=== PATIENT | female | born 1950 | race Caucasian/White ===

== ENCOUNTER 2022-10-24 17:17 | Emergency (ER) | payer MEDICARE, SELFPAY ==
--- NOTE | ~2022-10-24 | XR_ITS ---
EXAMINATION: XR chest 1V portable Exam Date/Time: 10/24/2022 17:26 CDT HISTORY: R/O CVA Comparison: 07/08/2018. RESULT: Lines, tubes, and devices: Cholecystectomy clips. Lungs and pleura: Low volumes with crowding. Otherwise clear. Cardiomediastinal silhouette: Stable. Other: No acute osseous or upper abdominal finding. IMPRESSION: No acute cardiopulmonary process. Reviewed, dictated and finalized at location K.
--- NOTE | ~2022-10-24 | CT_ITS ---
EXAMINATION: CT brain wo con DATE: 10/24/2022 18:28 INDICATION: NEURO COMPLAINTS, HX OF CVA . TECHNIQUE: Computed tomography (CT) of the head was performed without intravenous contrast. The mA wa s adjusted according to patient size. Iterative reconstruction technique was employed. The dose-lengt h product was 605.33 mGy-cm. COMPARISON: None. FINDINGS: No acute intracranial hemorrhage or extra-axial fluid collection. No hydrocephalus, mass, or herniation. No acute ischemic infarct. Unremarkable dural venous sinus attenuation. No acute osseous abnormality. The aerated spaces are clear. Mild atrophy and moderate chronic white matter change. Atherosclerotic intracranial calcification. En cephalomalacia and volume loss in the left MCA territory, likely old infarct. Old bilateral basal jaspal glia lacunar infarcts. IMPRESSION: No acute intracranial process. Reviewed, dictated and finalized at location K.
[2022-10-24 17:16] VITALS: BP 232/113; PULSE 96; RESP 20; O2SAT 100
--- NOTE | 2022-10-24 17:23 | ECG_ITS ---
Measurements Intervals [place] Rate: 100 P: 35 PA: 83 QRS: -11 QRSD: 86 T: 28 QT: 348 QTc: 449 Interpretive Statements SINUS TACHYCARDIA WITH SHORT PA INTERVAL INFERIOR MYOCARDIAL INFARCTION , OF INDETERMINATE AGE ABNORMAL ECG NO PREVIOUS ECG AVAILABLE FOR COMPARISON Electronically Signed On 10-25-2022 16:52:09 CDT by Hasmukh Aguilar M.D.
[2022-10-24 17:28] LABS: Glucose Point of Care 129 mg/dl (65-105)
[2022-10-24 17:31] VITALS: BP 224/133; PULSE 94; RESP 18; O2SAT 100
[2022-10-24 18:20] LABS: Alanine Aminotransferase 22 U/L (6-35); Albumin Level 4.6 g/dL (3.5-5.1); Alkaline Phosphatase 86 U/L (38-126); Anion Gap 11 mmol/L (8-16); Aspartate Amino Transferase 25 U/L (14-36); Bilirubin,Total 0.7 mg/dL (0.2-1.3); Blood Urea Nitrogen 13 mg/dL (7-17); Calcium 8.9 mg/dL (8.4-10.2); Carbon Dioxide 24 mmol/L (22-30); Chloride 106 mmol/L (98-107); Estimated Glomerular Filt Rate > 60; Glucose 149 mg/dL (65-110); Potassium 3.9 mmol/L (3.4-5.0); Sodium 141 mmol/L (137-145)
[2022-10-24 18:32] LABS: Troponin I < 0.012 ng/mL (0.000-0.034)
[2022-10-24 18:42] LABS: Basophils Absolute Auto 0.1 K/mm3 (0.0-0.1); Basophils Percent Auto 0.6 % (0.2-1.2); Eosinophils Absolute Auto 0.1 K/mm3 (0-0.3); Eosinophils Percent Auto 0.7 % (0-4.4); Hematocrit 43.1 % (37.0-47.0); Hemoglobin 14.1 g/dL (12.0-15.0); Immature Granulocyte Absolute 0.06 K/mm3 (0.00-0.031); Immature Granulocyte Percent A 0.5 % (0-0.5); Lymphocytes Absolute Auto 1.67 K/mm3 (0.9-3.2); Lymphocytes Percent Auto 13.8 % (18.3-44.2); Mean Corpuscular HGB Conc 32.7 g/dl (32-36); Mean Corpuscular Hemoglobin 30.9 pg (26-34); Mean Corpuscular Volume 94.3 fl (80-100); Mean Platelet Volume 10.8 fl (7.4-10.4); Monocytes Absolute Auto 0.6 K/mm3 (0.1-0.6); Monocytes Percent Auto 4.7 % (2.6-8.5); Neutrophils Absolute Auto 9.6 K/mm3 (1.3-6.7); Neutrophils Percent Auto 79.7 % (45.5-73.1); Red Blood Count 4.57 M/mm3 (4.2-5.4); Red Cell Distribution Width 12.9 % (11.5-14.5); White Blood Count 12.1 K/mm3 (4.5-10.0)
[2022-10-24 18:43] VITALS: BP 202/99; PULSE 104; RESP 18; O2SAT 100
[2022-10-24 18:50] LABS: INR 1.1; Prothrombin Time 13.9 Seconds (11.1-14.7)
[2022-10-24 18:52] LABS: Partial Thromboplastin Time 45.3 SECONDS (22.3-36.8)
--- NOTE | 2022-10-24 18:53 | ED.NEUROSD ---
HPI - Neuro Symptoms/Deficit General Chief Complaint: Neuro Symptoms/Deficit Stated Complaint: STROKE LIKE S/S Time Seen by Provider: 10/24/22 18:39 Source: patient, family and EMS Mode of arrival: EMS Limitations: clinical condition History of Present Illness HPI Narrative: 72 years old white female came to the emergency room by ambulance because of right facial drooling.. Patient lives with her daughter last time was seen in normal condition 3 hours 20 minutes prior to arrival to the emergency room. 2 hours ago her daughter noticed that the patient have drooling on the right side of the face. Patient denies any complain. History of CVA with right hemiplegia and aphasia. Patient takes CBD and instead of aspirin, patient does not take any medicine at home, been on holistic medicine for the last 3 years since the pandemic, did not see any doctor over 3 years ago. Currently patient is asymptomatic. Patient normally walks without planning assistant or a walker. She is full code. She denies any fever, chills, nausea, vomiting, chest pain, shortness of breath back pain. Related Data Allergies Allergy/AdvReac Type Severity Reaction Status Date / Time No Known Allergies Allergy Verified 10/24/22 17:32 Review of Systems Review of Systems: All systems reviewed & are unremarkable except as noted in HPI and below PMFSH Family History Family History Father Acute myocardial infarction Grandparent Acute myocardial infarction Cerebrovascular accident Mother Family history of malignant neoplasm of uterus Social History Social History Smoking status: Never smoker Alcohol intake: never Exam Narrative: General appearance: Well-developed, well-nourished Skin: Normal color Head: Normocephalic, nontraumatic Eyes: Clear conjunctiva ENT: Oropharynx normal, ears normal, nose normal Neck: Supple, nontender Chest and respiratory: Airway patent, no respiratory distress, no accessory muscle use Heart: Regular rate/rhythm Abdomen: Soft, nontender, no organomegaly, quiet bowel sounds Vascular: Normal peripheral pulses, normal capillary refill. Musculoskeletal: Normal range of motion, nontender back Neurologic: Alert and oriented ?3,, slight right facial drooping, expressive aphasia. Course Reevaluation(s) Reevaluation #1: Patient feeling much better, back to her normal base of neurologic condition, blood pressure dropped to 159/89 after 20 mg of labetalol IV. Patient declined to be admitted and would like to go home to continue her holistic medications Date: 10/24/22 Time: 21:19 Vital Signs Vital signs: Vital Signs Pulse Rate 96 10/24/22 17:16 Respiratory Rate 20 10/24/22 17:16 Blood Pressure 232/113 H 10/24/22 17:16 Pulse Oximetry 100 10/24/22 17:16 Oxygen Delivery Room Air 10/24/22 17:16 Pulse Rate 65 10/24/22 20:11 Respiratory Rate 22 H 10/24/22 20:11 Blood Pressure 159/89 H 10/24/22 20:11 Pulse Oximetry 96 10/24/22 20:11 Oxygen Delivery Room Air 10/24/22 17:16 MDM - Neuro Symptoms/Deficit MDM Narrative Medical decision making narrative: Patient presented to the ED with TIA symptoms and elevated blood pressure. Patient supposed to be on aspirin and lisinopril 20 mg once a day, does not take any medicine since the pandemic. Patient been using CBD instead of aspirin and holistic medicine instead of lisinopril. Differential diagnosis including CVA, TIA, hypertensive encephalopathy. Work-up today showed significant blood work-up, CT head showed no acute intracranial process, chest x-ray showe
[2022-10-24 18:59] LABS: Platelet Clumps Present; Platelet Estimate Adequate (Adequate); Schistocytes None Seen (NORMAL)
[2022-10-24] MEDS: LABETALOL HCL INJ 100 MG/20 ML VIAL 20 MG IV PUSH (19:17)
[2022-10-24] MEDS: ASPIRIN 325 MG TABLET PO (19:18)
[2022-10-24 20:11] VITALS: BP 159/89; PULSE 65; RESP 22; O2SAT 96
[2022-10-24 21:15] VITALS: BP 171/93; PULSE 67; RESP 20; O2SAT 97
== END 2022-10-24 20:25 | disposition left against medical advice (07) ==
PROVIDERS: Emergency Medicine; Emergency Provider Emergency Medicine; PCP Family Medicine
DX: G45.9 Transient cerebral ischemic attack, unspecified (principal); Z91.119 Patient's noncompliance with dietary regimen due to unspecified reason; T46.4X6A Underdosing of angiotensin-converting-enzyme inhibitors, initial encounter; T39.016A Underdosing of aspirin, initial encounter; Z91.128 Patient's intentional underdosing of medication regimen for other reason; I69.951 Hemiplegia and hemiparesis following unspecified cerebrovascular disease affecting right dominant side; I69.920 Aphasia following unspecified cerebrovascular disease; R00.0 Tachycardia, unspecified; R94.31 Abnormal electrocardiogram [ECG] [EKG]
CPT/HCPCS: 36415; 70450; 71045; 80053; 82948; 84484; 85025; 85055; 85610; 85730; 93005; 96374; 99284; A9270